=== PATIENT | male | born 1950 | race Caucasian/White ===

== ENCOUNTER → 2018-07-13 | Outpatient (CLI) | payer MEDICARE ==
[~2018-07-13] MED LIST: ASPI-587 PO; CIPR500T78 PO; CLOT15CR6 TOP; HYDR-3714 PO; HYOS0.1216 PO; METF-380 PO; OMEG1CAP51 PO; ONDA-42 PO; PARO20TA57 PO; PHEN200T27 PO; TMSL.4C PO
--- NOTE | 2018-07-13 15:43 | Diagnostic Imaging Report ---
INDICATION: Right side abdominal pain. EXAMINATION: KUB at 2:44 p.m. FINDINGS: There appear to be two calculi projecting over the lower pole of the left kidney, the largest which measures 5 mm in diameter. Right kidney is obscured by gas and fecal material. Bowel gas pattern is normal. IMPRESSION: Probable left nephrolithiasis. Dictated by: Dictated on workstation # [id number]
== END ==
LOC: RAD FS 14:30
PROVIDERS: ATTEND Physician Assistant
DX: R10.10 Upper abdominal pain, unspecified (principal)
CPT/HCPCS: 74018